=== PATIENT | male | born 1950 | race Caucasian/White ===

== ENCOUNTER 2021-01-09 06:26 | Day surgery (SDC) | payer MEDICARE ==
[2021-01-09] MEDS ORDERED: Acetaminophen 500 MG Tab PO ONE (06:30)
[2021-01-09] MEDS ORDERED: Bacitracin Oint 1 GM U/D Packet ONE (06:53)
[2021-01-09] MEDS ORDERED: Lidocaine 1% with EPINEPHrine 1:100,000 50 ML MDV ONE (06:53)
[2021-01-09] MEDS ORDERED: Meropenem 500 MG SDV ONE (06:53)
[2021-01-09] MEDS ORDERED: Bupivacaine 0.5% 30 ML SDV ONE (06:53)
[2021-01-09] MEDS ORDERED: Meropenem 500 MG in Sodium Chloride 0.9% 50 ML IV ONE (07:00)
[2021-01-09] MEDS ORDERED: Dextrose 5%-Lactated Ringers 1,000 ML IV SCH (07:00)
[2021-01-09] MEDS ORDERED: Midazolam 1 MG/ML 2 ML SDV ONE (07:04)
[2021-01-09] MEDS ORDERED: fentaNYL 100 MCG/2 ML SDV ONE (07:04)
[2021-01-09] MEDS ORDERED: Propofol 200 MG/20 ML SDV ONE (07:04)
[2021-01-09] MEDS ORDERED: Amoxicillin/Clavulanate K 875-125 MG Tab PO ONE (09:24)
--- NOTE | 2021-01-14 14:25 | OR ---
DATE OF PROCEDURE: 01/09/2021 SURGEON: Chandan Mariano MD PREOPERATIVE DIAGNOSIS: Large intermittently infected epidermoid cyst to mid back. POSTOPERATIVE DIAGNOSIS: Large intermittently infected epidermoid cyst to mid back. PROCEDURE PERFORMED: Excision of epidermoid cyst on the back with layered closure ([id number]). ANESTHESIA: General. INDICATIONS FOR PROCEDURE: This is a 70-year-old male presenting with a large epidermoid cyst on his mid back. This has intermittently been infected off and on over the years, previously been drained, and is now presently fairly quiescent. Plan is to proceed with wide excision of the area. Potential risks including bleeding, infection, injury to the underlying musculature, possible recurrence of the lesion over time were reviewed, and the patient wishes to proceed. DETAILS OF PROCEDURE: The patient was taken to the operating room and placed in a supine position. After general endotracheal anesthesia was induced, he was positioned in a prone position and the back and surrounding areas prepped and draped. A transversely oriented elliptical incision was made over the lesion, and this was removed intact. This extended down to the muscular fascia, but did not go deep to that and was removed in an otherwise intact manner. The lesion plus margin length was 5.5 cm. The deeper soft tissue was then approximated with some 3-0 and 4-0 Vicryl stitch and then the skin with a 5-0 Prolene skin stitch. The incision length was 7.7 cm. A dressing was then applied. The patient was taken to the recovery room in satisfactory condition. There were no evident complications. Chandan Mariano MD /[id number]
== END 2021-01-09 09:55 | disposition home or self-care (01) ==
LOC: JP.SDS 06:26
PROVIDERS: ATTEND Surgery
DX: L72.0 Epidermal cyst (principal); I10 Essential (primary) hypertension; F17.210 Nicotine dependence, cigarettes, uncomplicated; E11.9 Type 2 diabetes mellitus without complications; Z88.8 Allergy status to other drugs, medicaments and biological substances
CPT/HCPCS: 11406; 12034; 88304; A9270; J2185; J2250; J2704; J3010; J3490; J7121